=== PATIENT | female | born 1955 | race Caucasian/White ===

== ENCOUNTER 2017-10-20 11:49 | Observation (INO) | payer OTHER ==
[~2017-10-20] VITALS: Ht 167.6 cm; Wt 58.5 kg
[~2017-10-20 11:49] MED LIST: ATOR10TA66 PO; DEXL60CA PO; METO-387 PO; MONT10TA21 PO; OXYB10TA PO; ROPI0.25 PO; VIT D2 PO; [UNRECOGNIZED DRUG - OTHER] PO
--- NOTE | 2017-10-20 11:56 | ED Chest Pain ---
General Stated Complaint: CP/SOB Source: patient, EMS Exam Limitations: no limitations History of Present Illness Date Seen by Provider: Oct 20, 2017 Time Seen by Provider: 11:54 Initial Comments To ER per EMS from [facility] in [facility]. Patient presented there for chest pain shortness of breath. EMS was summoned due to these complaints. Upon their arrival, oxygen saturation was found be 86% on room air and she does not wear oxygen at home. She does smoke cigarettes. She developed a fever and cough yesterday. Fever maximum of 100.2. EMS gave 324 mg of aspirin in route to the hospital. Currently the chest pain and shortness of breath are gone. Patient reports a history of esophageal spasms and states that this pain felt similar. 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 NTG SL LOCOMOTIVE CRANE OPERATOR: No Allergies and Home Medications Allergies Coded Allergies: No Known Drug Allergies (Unverified , 06/17/16) Home Medications Atorvastatin Calcium 10 Mg Tablet, 10 MG PO HS, (Reported) Dexlansoprazole 60 Mg bp, 60 MG PO DAILY, (Reported) Metoprolol Succinate 25 Mg Tab.er.24h, 12.5 MG PO DAILY, (Reported) Montelukast Sodium 10 Mg Tablet, 10 MG PO DAILY, (Reported) Oxybutynin Chloride 10 Mg Tab.er.24, 10 MG PO DAILY, (Reported) Ropinirole HCl 0.25 Mg Tablet, 0.25 MG PO DAILY, (Reported) [Levocitrizine] , 5 MG PO DAILY, (Reported) [Vit D2] , 50,000 UNITS PO WEEK, (Reported) Review of Systems Constitutional: see HPI, fever EENTM: No Symptoms Reported Respiratory: See HPI, Cough, Shortness of Air Cardiovascular: See HPI, Chest Pain Gastrointestinal: No Symptoms Reported Genitourinary: No Symptoms Reported Musculoskeletal: no symptoms reported Skin: no symptoms reported Psychiatric/Neurological: No Symptoms Reported Past Pedapfb-Sblnmd-Xmgcpb Hx Patient Social History Recent Hopitalizations: No Seasonal Allergies Seasonal Allergies: No Surgeries Surgeries: Hysterectomy Cardiovascular Cardiac Disorders: Hypertension Reproductive System Hx Reproductive Disorders: No Physical Exam Vital Signs Vital Signs - First Documented Capillary Refill : General Appearance: No Apparent Distress, WD/WN HEENT: PERRL/EOMI, TMs Normal Neck: Full Range of Motion, Normal Inspection Respiratory: Normal Breath Sounds, No Accessory Muscle Use, No Respiratory Distress Cardiovascular: Regular Rate, Rhythm, Normal Peripheral Pulses Gastrointestinal: Normal Bowel Sounds, Non Tender, Soft Extremity: Normal Capillary Refill, Normal Inspection Neurologic/Psychiatric: Alert, Oriented x3, No Motor/Sensory Deficits Skin: Normal Color, Warm/Dry Focused Exam Evaluation Lactate Level Laboratory Tests 10/20/17 12:15: Lactic Acid Level 2.76*H 10/20/17 14:30: Lactic Acid Level 1.42 Lactic Acid Level Laboratory Tests Test 10/20/17 12:15 10/20/17 14:30 Lactic Acid Level 2.76 MMOL/L (0.50-2.00) *H 1.42 MMOL/L (0.50-2.00) Progress/Results/Core Measures Results/Orders Lab Results Laboratory Tests Test 10/20/17 12:15 10/20/17 14:27 10/20/17 14:30 Range/Units White Blood Count 8.8 4.3-11.0 10^3/uL Red Blood Count 4.29 L 4.35-5.85 10^6/uL Hemoglobin 13.3 11.5-16.0 G/DL Hematocrit 37 35-52 % Mean Corpuscular Volume 87 80-99 FL Mean Corpuscular Hemoglobin 31 25-34 PG Mean Corpuscular Hemoglobin Concent 36 32-36 G/DL Red Cell Distribution Width 13.7 10.0-14.5 % Platelet Count 168 130-400 10^3/uL Mean Platelet Volume 11.4 H 7.4-10.4 FL Neutrophils (%) (Auto) 81 H 42-75 % Lymphocytes (%) (Auto) 9 L 12-44 % Monocytes (%) (Auto) 10 0-12 % Eosinophils (%) (Auto) 0 0-10 % Basophils (%) (Auto) 0 0-10 % Neutrophils # (Auto) 7.1 1.8-7.8 X 10^3 Lymphocytes # (Auto) 0.8 L 1.0-4.0 X 10^3 Monocytes # (Auto) 0.9 0.0-1.0 X 10^3 Eosinophils # (Auto) 0.0 0.0-0.3 10^3/uL Basophils # (Auto) 0.0 0.0-0.1 10^3/uL Sodium Level 141 135-145 MMOL/L Potassium Level 3.5 L 3.6-5.0 MMOL/L Chloride Level 107 98-107 MMOL/L Carbon Dioxide Level 23 21-32 MMOL/L Anion Gap 11 5-14 MMOL/L Blood Urea Nitrogen 12 7-18 MG/DL Creatinine 0.79 0.60-1.30 MG/DL Estimat Glomerular Filtration Rate > 60 BUN/Creatinine Ratio 15 Glucose Level 109 H 70-105 MG/DL Lactic Acid Level 2.76 *H 1.42 0.50-2.00 MMOL/L Calcium Level 8.5 8.5-10.1 MG/DL Total Bilirubin 0.3 0.1-1.0 MG/DL Aspartate Amino Transf (AST/SGOT) 25 5-34 U/L Alanine Aminotransferase (ALT/SGPT) 35 0-55 U/L Alkaline Phosphatase 56 40-136 U/L Troponin I < 0.30 < 0.30 <0.30 NG/ML Total Protein 6.3 L 6.4-8.2 GM/DL Albumin 3.6 3.2-4.5 GM/DL Urine Color YELLOW Urine Clarity CLEAR Urine pH 5 5-9 Urine Specific [place] 1.015 L 1.016-1.022 Urine Protein 1+ H NEGATIVE Urine Glucose (UA) NEGATIVE NEGATIVE Urine Ketones NEGATIVE NEGATIVE Urine Nitrite NEGATIVE NEGATIVE Urine Bilirubin NEGATIVE NEGATIVE Urine Urobilinogen NORMAL NORMAL MG/DL Urine Leukocyte Esterase NEGATIVE NEGATIVE Urine RBC (Auto) 4+ H NEGATIVE Urine RBC 10-25 H /HPF Urine WBC NONE /HPF Urine Crystals NONE /LPF Urine Bacteria NEGATIVE /HPF Urine Casts NONE /LPF Urine Mucus NEGATIVE /LPF Urine Culture Indicated NO Micro Results Microbiology 10/20/17 Influenza Types A,B Antigen (BLANCO) - Final, Complete My Orders Orders - JULIO KAMARA APRN Ibuprofen Tablet (Motrin Tablet) (10/20/17 12:15) Cbc With Automated Diff (10/20/17 12:10) Comprehensive Metabolic Panel (10/20/17 12:10) Ua Culture If Indicated (10/20/17 12:10) Saline Lock/Iv-Start (10/20/17 12:10) Lactic Acid Analyzer (10/20/17 12:10) Blood Culture (10/20/17 12:10) Chest Pa/Lat (2 View) (10/20/17 12:26) Antacid Suspension (Mylanta Suspension (10/20/17 13:30) Lidocaine 2% Viscous 15 Ml (Xylocaine Vi (10/20/17 13:30) Troponin I (10/20/17 13:24) Influenza A And B Antigens (10/20/17 13:41) Ns Iv 1000 Ml (Sodium Chloride 0.9%) (10/20/17 14:15) Troponin I (10/20/17 14:31) Ct Angio Chest W (10/20/17 14:31) Iohexol Injection (Omnipaque 350 Mg/Ml 1 (10/20/17 14:45) Sodium Chloride Flush (Catheter Flush Sy (10/20/17 14:45) Ns (Ivpb) (Sodium Chloride 0.9%) (10/20/17 14:45) Pharmacy Communication (Pharmacy Communi (10/20/17 14:45) Medications Given in ED Current Medications Medications Dose Ordered Sig/Bronson Route Start Time Stop Time Status Last Admin Dose Admin Al Hydrox/Mg Hydrox/Simethicone 30 ml ONCE ONCE PO 10/20/17 13:30 10/20/17 13:31 DC 10/20/17 13:45 30 ML Ibuprofen 800 mg ONCE ONCE PO 10/20/17 12:15 10/20/17 12:16 DC 10/20/17 12:10 800 MG Iohexol 150 ml ONCE ONCE IV 10/20/17 14:45 10/20/17 14:47 DC 10/20/17 15:16 125 ML Lidocaine HCl 15 ml ONCE ONCE PO 10/20/17 13:30 10/20/17 13:31 DC 10/20/17 13:46 15 ML Sodium Chloride 10 ml NEEDED PRN IV 10/20/17 14:45 10/20/17 15:17 10 ML Sodium Chloride 250 ml ONCE ONCE IV 10/20/17 14:45 10/20/17 14:47 DC 10/20/17 15:16 80 ML Vital Signs/I&O Vital Sign - Last 12Hours 10/20/17 10/20/17 12:00 12:00 Temp 102.4 102.4 Pulse 81 81 Resp 22 22 B/P (MAP) 110/56 110/56 (74) Pulse Ox 96 96 O2 Delivery Nasal Cannula Nasal Cannula O2 Flow Rate 2.00 2.00 Diagnostic Imaging Diagonstic Imaging: Xray Plain Films/CT/US/NM/MRI: chest Comments NAME: [facility] REC#: [id number] PT STATUS: REG ER : 1955 PHYSICIAN: JULIO KAMARA APRN ADMIT DATE: 10/20/17/ER Draft Date of Exam:10/20/17 CHEST PA/LAT (2 VIEW) INDICATION: Cough. TIME OF EXAM: 1:15 p.m. COMPARISON: No prior studies are available for comparison. FINDINGS: There is a calcified nodule in the right lower lobe suggestive of a granuloma. No infiltrates are detected. No effusion or pneumothorax is seen. The heart size is normal. IMPRESSION: No acute cardiopulmonary process is detected. Dictated on workstation # [id number] Dict: 10/20/17 1300 Trans: 10/20/17 1302 [id number] Interpreted by: PILY HAINES MD Electronically signed by: Departure Communication (Admissions) Progress Notes 1424- patient did develop a brief episode of chest pain while in the emergency room. She was given a GI cocktail which helped and the pain is completely resolved after about 10 minutes. With the oxygen off her oxygen saturation has remained 91-93% on room air. Her blood pressure is 91/55 and she states that the low for her. We'll give a bag of fluids and observe her. She feels hungry she's not eaten all day so she's ordering off of the menu currently. 1536-blood pressure is still low at 87/55. Heart rate is in the low 60s. Oxygen saturation 90-92% on room air. She is afebrile at this time. Because of the hypotension will admit, steroids, Rocephin. I did discuss the case with Dr. Mckinney and she agrees. My main reason for admission as the hypotension, she likely has bronchitis and flulike illness as a cause for the fever. Impression Impression: Primary Impression: Bronchitis Additional Impression: Hypotension Disposition: ADMITTED INPATIENT Condition: Stable Admissions Decision to Admit Reason: Admit from ER (General) Decision to Admit/Date: Oct 20, 2017 Time/Decision to Admit Time: 15:37 Departure-Patient Inst. Referrals: DIANA GUERRERO (PCP/Family) Primary Care Physician JULIO KAMARA APRN Oct 20, 2017 11:56
[2017-10-20] MEDS ORDERED: IBUPROFEN 800 MG (MOTRIN) TAB PO ONE (12:15)
[2017-10-20 12:24] LABS: BASOPHILS % (AUTO) 0 % (0-10); EOSINOPHILS % (AUTO) 0 % (0-10); HEMATOCRIT 37 % (35-52); HEMOGLOBIN 13.3 G/DL (11.5-16.0); LYMPHOCYTES # (AUTO) 0.8 X 10^3 (1.0-4.0); LYMPHOCYTES % (AUTO) 9 % (12-44); MEAN CORPUSCULAR HEMOGLOBIN 31 PG (25-34); MEAN CORPUSCULAR HGB CONC 36 G/DL (32-36); MEAN CORPUSCULAR VOLUME 87 FL (80-99); MEAN PLATELET VOLUME 11.4 FL (7.4-10.4); MONOCYTES # (AUTO) 0.9 X 10^3 (0.0-1.0); MONOCYTES % (AUTO) 10 % (0-12); NEUTROPHILS # (AUTO) 7.1 X 10^3 (1.8-7.8); NEUTROPHILS % (AUTO) 81 % (42-75); PLATELET COUNT 168 10^3/uL (130-400); RED BLOOD COUNT 4.29 10^6/uL (4.35-5.85); RED CELL DISTRIBUTION WIDTH 13.7 % (10.0-14.5); WHITE BLOOD COUNT 8.8 10^3/uL (4.3-11.0)
[2017-10-20 12:34] LABS: ALANINE AMINOTRANSFERASE 35 U/L (0-55); ALBUMIN 3.6 GM/DL (3.2-4.5); ALKALINE PHOSPHATASE 56 U/L (40-136); BILIRUBIN,TOTAL 0.3 MG/DL (0.1-1.0); BUN/CREATININE RATIO 15; CALCIUM 8.5 MG/DL (8.5-10.1); CARBON DIOXIDE 23 MMOL/L (21-32); CHLORIDE 107 MMOL/L (98-107); CREATININE SERUM 0.79 MG/DL (0.60-1.30); GFR ESTIMATED > 60; GLUCOSE 109 MG/DL (70-105); POTASSIUM 3.5 MMOL/L (3.6-5.0); SODIUM 141 MMOL/L (135-145); TOTAL PROTEIN 6.3 GM/DL (6.4-8.2)
--- NOTE | 2017-10-20 13:02 | Diagnostic Imaging Report ---
INDICATION: Cough. TIME OF EXAM: 1:15 p.m. COMPARISON: No prior studies are available for comparison. FINDINGS: There is a calcified nodule in the right lower lobe suggestive of a granuloma. No infiltrates are detected. No effusion or pneumothorax is seen. The heart size is normal. IMPRESSION: No acute cardiopulmonary process is detected. Dictated by: Dictated on workstation # [id number]
[2017-10-20] MEDS ORDERED: ANTACID SUSP 30 ML UDC (MYLANTA) PO ONE (13:30)
[2017-10-20] MEDS ORDERED: LIDOCAINE 2% VISCOUS 15 ML UDC PO ONE (13:30)
[2017-10-20] MEDS ORDERED: NS IV 1000 ML 1,000 ML IV SCH (14:15)
[2017-10-20 14:37] LABS: BILIRUBIN,URINE NEGATIVE (NEGATIVE); CLARITY,URINE CLEAR; COLOR,URINE YELLOW; GLUCOSE, URINE (UA) NEGATIVE (NEGATIVE); KETONES,URINE NEGATIVE (NEGATIVE); LEUKOCYTE ESTERASE ,URINE NEGATIVE (NEGATIVE); NITRITE,URINE NEGATIVE (NEGATIVE); PH,URINE 5 (5-9); PROTEIN,URINE 1+ (NEGATIVE); UROBILINOGEN,URINE NORMAL (NORMAL)
[2017-10-20] MEDS ORDERED: CATHETER FLUSH 10 ML SYR IV PRN ×2 (14:45→17:30)
[2017-10-20] MEDS ORDERED: IOHEXOL 350 MG/ML 150 ML (OMNIPAQUE 350) VIAL IV ONE (14:45)
[2017-10-20] MEDS ORDERED: NS 250 ML (IVPB) BAG IV ONE (14:45)
[2017-10-20 14:52] LABS: BACTERIA,URINE NEGATIVE /HPF
--- NOTE | 2017-10-20 15:30 | Diagnostic Imaging Report ---
PROCEDURE: CT angiography of the chest with contrast. TECHNIQUE: Multiple contiguous axial images were obtained through the chest after uneventful bolus administration of intravenous contrast. Reconstructed CTA MIP acquisitions were also performed. INDICATION: Increasing chest pain. COMPARISON: No prior studies are available for comparison. FINDINGS: Evaluation of the pulmonary arterial system is without evidence of thromboembolism. No filling defects are identified within the central, lobar, or segmental pulmonary arterial branches. No axillary lymphadenopathy is seen. There are mildly prominent lymph nodes identified in the mediastinum and douglas bilaterally, etiology indeterminate. The thoracic aorta is normal caliber. No dissection is seen. No pericardial or pleural fluid is identified. Parenchymal evaluation shows significant emphysematous changes throughout both lungs. The upper abdomen is unremarkable. IMPRESSION: 1. No evidence of pulmonary embolism or thoracic aortic dissection. 2. Pulmonary emphysema. 3. Nonspecific mildly enlarged mediastinal and hilar lymph nodes, perhaps reactive but follow-up can be performed to confirm stability. Dictated by: Dictated on workstation # [id number]
[2017-10-20 16:45] VITALS: BP 108/68
[2017-10-20] MEDS ORDERED: predniSONE 20 MG TAB PO SCH (17:00)
[2017-10-20] MEDS ORDERED: RECEIVED CONTRAST (Hold Metformin) IV SCH (17:00)
[2017-10-20] MEDS: NS IV 1000 ML 1,000 ML IV SCH (18:11)
[2017-10-20] MEDS: predniSONE 20 MG TAB PO SCH (18:12)
[2017-10-20] MEDS: cefTRIAXone 1,000 MG/NS 50 ML IVPB IV SCH ×2 (18:13)
[2017-10-20] MEDS: RT-ALBUTEROL/IPRATROPIUM 3 ML (DUONEB) VIAL INH SCH (19:34)
[2017-10-20 20:00] VITALS: BP 106/53
[2017-10-20] MEDS ORDERED: guaiFENesin/DM (ROBITUSSIN DM) 10 ML UDC PO PRN (22:45)
[2017-10-20] MEDS ORDERED: HYDROcodone/APAP 5 MG/325 MG (LORTAB) TAB PO PRN (22:45)
[2017-10-20] MEDS ORDERED: IBUPROFEN TABLET 200 MG TAB PO PRN (23:15)
[2017-10-21 00:29] VITALS: BP 118/56
[2017-10-21 03:52] VITALS: BP 118/56
[2017-10-21] MEDS: NS IV 1000 ML 1,000 ML IV SCH (03:53)
[2017-10-21] MEDS: predniSONE 20 MG TAB PO SCH (06:38)
[2017-10-21] MEDS: RT-ALBUTEROL/IPRATROPIUM 3 ML (DUONEB) VIAL INH SCH (07:06)
[2017-10-21 07:17] LABS: BASOPHILS % (AUTO) 0 % (0-10); EOSINOPHILS % (AUTO) 0 % (0-10); HEMATOCRIT 35 % (35-52); HEMOGLOBIN 11.9 G/DL (11.5-16.0); LYMPHOCYTES # (AUTO) 0.8 X 10^3 (1.0-4.0); LYMPHOCYTES % (AUTO) 15 % (12-44); MEAN CORPUSCULAR HEMOGLOBIN 30 PG (25-34); MEAN CORPUSCULAR HGB CONC 34 G/DL (32-36); MEAN CORPUSCULAR VOLUME 89 FL (80-99); MEAN PLATELET VOLUME 12.1 FL (7.4-10.4); MONOCYTES # (AUTO) 0.3 X 10^3 (0.0-1.0); MONOCYTES % (AUTO) 5 % (0-12); NEUTROPHILS # (AUTO) 4.5 X 10^3 (1.8-7.8); NEUTROPHILS % (AUTO) 80 % (42-75); PLATELET COUNT 139 10^3/uL (130-400); RED BLOOD COUNT 3.92 10^6/uL (4.35-5.85); WHITE BLOOD COUNT 5.7 10^3/uL (4.3-11.0)
[2017-10-21 07:19] LABS: ALANINE AMINOTRANSFERASE 46 U/L (0-55); ALBUMIN 3.4 GM/DL (3.2-4.5); ALKALINE PHOSPHATASE 61 U/L (40-136); BILIRUBIN,TOTAL 0.2 MG/DL (0.1-1.0); BUN/CREATININE RATIO 14; CALCIUM 8.2 MG/DL (8.5-10.1); CARBON DIOXIDE 23 MMOL/L (21-32); CHLORIDE 111 MMOL/L (98-107); CREATININE SERUM 0.76 MG/DL (0.60-1.30); GFR ESTIMATED > 60; GLUCOSE 143 MG/DL (70-105); POTASSIUM 4.2 MMOL/L (3.6-5.0); SODIUM 141 MMOL/L (135-145); TOTAL PROTEIN 5.9 GM/DL (6.4-8.2)
[2017-10-21 08:00] VITALS: BP 126/73
[2017-10-21] MEDS: cefTRIAXone 1,000 MG/NS 50 ML IVPB IV SCH ×2 (08:21)
[2017-10-21] MEDS ORDERED: HYDR12.5 PO (09:43)
[2017-10-21] MEDS ORDERED: LEVO5TAB28 PO (09:43)
[2017-10-21] MEDS ORDERED: METO-370 PO (09:43)
[2017-10-21] MEDS ORDERED: ATOR20TA66 PO (09:43)
[2017-10-21] MEDS ORDERED: CHOL10007 PO (09:43)
[2017-10-21] MEDS ORDERED: ALBU90AE IH (09:59)
[2017-10-21] MEDS ORDERED: FLUT16SP22 NS (09:59)
[2017-10-21] MEDS ORDERED: SUCR1TAB36 PO ×2 (09:59→10:03)
[2017-10-21] MEDS ORDERED: IPR14IN IH (09:59)
[2017-10-21] MEDS ORDERED: CYCL10TA9 PO (10:03)
[2017-10-21] MEDS ORDERED: AZEL6DRO6 OU (10:03)
[2017-10-21] MEDS ORDERED: RT-ALBUINH IH (10:05)
--- NOTE | 2017-10-21 10:34 | Short Stay Summary-Hospitalist ---
HPI History of Present Illness: HPI/Chief Complaint This is a 61-year-old white female who had been to see her primary care provider and was found to have a low oxygen saturation and low blood pressure. She had an episode of chest discomfort which she felt was secondary to her esophageal spasm. Troponin has been negative overnight. The patient had a CTA that showed emphysema and some enlarged mediastinal nodes. This morning she is feeling much better, her oxygen saturation on room air is 94 percent and her blood pressure is normal. She has had a recent cough and actually has some discomfort of her abdomen muscles because of the cough. Other than that she's feeling much better after having been placed on the prednisone and is ready to go home. She has a long history of smoking Source: patient Exam Limitations: no limitations Date Seen 10/21/17 Time Seen by Provider: 10:15 Attending Physician Denae Liao Referring Physician Date of Admission Oct 20, 2017 at 3:44 pm Home Medications & Allergies Home Medications Reviewed patient Home Medication Reconciliation Form Allergies Allergies Coded Allergies No Known Drug Allergies (Oonmhbjpuo42/13/16) Past Rbnplbh-Ylisqm-Tisgdd Hx Patient Social History Marrital Status: Employed/Student: retired Alcohol Use: Denies Use Recreational Drug Use: No Smoking Status: Current Everyday Smoker Physical Abuse Screen: No Sexual Abuse: No Recent Foreign Travel: No Contact w/other who traveled: No Recent Hopitalizations: No Recent Infectious Disease Expo: No Immunizations Up To Date Date of Influenza Vaccine: Jun 22, 2017 Seasonal Allergies Seasonal Allergies: No Surgeries Yes Hysterectomy Respiratory Yes Emphysema Currently Using CPAP: No Currently Using BIPAP: No Cardiovascular Yes Hypertension, Irregular Heartbeat Neurological No Reproductive System Hx Reproductive Disorders: No Genitourinary Yes (bladder "trouble" but can't remember what it was called.) Gastrointestinal No Musculoskeletal No Endocrine History of Endocrine Disorders: No Cancer No Psychosocial History of Psychiatric Problem: No Family Medical History Significant Family History: No Pertinent Family Hx Review of Systems Constitutional: see HPI EENTM: no symptoms reported Respiratory: cough Cardiovascular: chest pain (Secondary to esophageal spasm) Gastrointestinal: no symptoms reported Genitourinary: incontinence Musculoskeletal: no symptoms reported Skin: no symptoms reported Psychiatric/Neurological: Depressed (Having recently lost her son and her ) Physical Exam Physical Exam Vital Signs Vital Signs - First Documented 10/20/17 17:06 FiO2 21 Capillary Refill : Less Than 3 Seconds General Appearance: No Apparent Distress HEENT: Normal ENT Inspection Neck: Normal Inspection, Supple Respiratory: Lungs Clear, Normal Breath Sounds, No Accessory Muscle Use, No Respiratory Distress Cardiovascular: Regular Rate, Rhythm, No Gallop, No Murmur Gastrointestinal: No Organomegaly, Non Tender, Soft Back: Normal Inspection Extremity: Normal Capillary Refill, Normal Inspection, No Calf Tenderness Neurologic/Psychiatric: Alert, Oriented x3, No Motor/Sensory Deficits, Normal Mood/Affect Results Results/Procedures Lab Laboratory Tests 10/20/17 12:15 10/21/17 05:27 Radiology 1. No evidence of pulmonary embolism or thoracic aortic dissection. 2. Pulmonary emphysema. 3. Nonspecific mildly enlarged mediastinal and hilar lymph nodes, perhaps reactive but follow-up can be performed to confirm stability. Short Stay Diagnosis Discharge Diagnosis-Short Stay Admission Diagnosis 1. Bronchitis with initial hypoxia that resolved 2. Hypotension transient 3. Emphysema 4. Hyperglycemia secondary to steroids 5. Enlarged mediastinal nodes of uncertain etiology 6. Chest pain secondary to esophageal spasm Patient is improved and is anxious to go home. She'll be discharged on Zithromax and prednisone Final Discharge Diagnosis 1. Bronchitis with initial hypoxia that resolved 2. Hypotension transient 3. Emphysema 4. Hyperglycemia secondary to steroids 5. Enlarged mediastinal nodes of uncertain etiology 6. Chest pain secondary to esophageal spasm 7. Tobaccoism Conclusion Plan Discharge home on Zithromax and prednisone. Recommended follow-up of the enlarged mediastinal nodes with her primary care provider. Tobaccoism- encourage curtailment Copy Copies To 1: Denise Robles Clinical Quality Measures AMI/AHF: ASA po Prior to arrival: Yes DVT/VTE Risk/Contraindication: Risk Factor Score Per Nursin RFS Level Per Nursing on Admit: 2=Moderate Smoking Cessation Counseling: Counseling-Symptomatic: 3-10 Minutes Discussed Options Including: Nicotine Patch DESTINY MCNEAL MD Oct 21, 2017 10:33
[2017-10-21] MEDS ORDERED: AZIT250T PO (10:43)
[2017-10-21] MEDS ORDERED: PRD20T PO (10:43)
[2017-10-21 11:40] VITALS: BP 126/73
--- OUTSIDE RECORDS SUMMARY | 2017-10-21 15:07 | XMS REPORT | Continuity of Care Document ---
Author Author [facility] Organization [facility] Address Unknown Phone Unavailable Allergies Active Description Code Type Severity Reaction Onset Reported/Identified Relationship to Patient Clinical Status Yes No Known Drug Allergies [id number] Drug Allergy Unknown N/A 06/17/2016 Medications There is no data. 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 Ot 599.70 HEMATURIA, UNSPECIFIED 06/17/2016 KATHERINE KIM MD Ot F17.210 NICOTINE DEPENDENCE, CIGARETTES, UNCOMPL 06/17/2016 KATHERINE KIM MD Ot I10 ESSENTIAL (PRIMARY) HYPERTENSION 06/17/2016 KATHERINE KIM MD Ot R00.1 BRADYCARDIA, UNSPECIFIED 06/17/2016 KATHERINE KIM MD Ot R42 DIZZINESS AND GIDDINESS 06/17/2016 KATHERINE KIM MD Ot Z79.899 OTHER FIELD HANDYMAN (CURRENT) DRUG THERAPY 06/18/2016 KATHERINE KIM MD Ot F17.210 NICOTINE DEPENDENCE, CIGARETTES, UNCOMPL 06/18/2016 KATHERINE KIM MD Ot I10 ESSENTIAL (PRIMARY) HYPERTENSION 06/18/2016 KATHERINE KIM MD Ot R00.1 BRADYCARDIA, UNSPECIFIED 06/18/2016 KATHERINE KIM MD Ot R42 DIZZINESS AND GIDDINESS 06/18/2016 KATHERINE KIM MD Ot Z79.899 OTHER FIELD HANDYMAN (CURRENT) DRUG THERAPY 06/23/2016 KATHERINE KIM MD Ot F17.210 NICOTINE DEPENDENCE, CIGARETTES, UNCOMPL 06/23/2016 KATHERINE KIM MD Ot I10 ESSENTIAL (PRIMARY) HYPERTENSION 06/23/2016 KATHERINE KIM MD Ot R00.1 BRADYCARDIA, UNSPECIFIED 06/23/2016 JULIO RODAS, KATHERINE Denis Ot R42 DIZZINESS AND GIDDINESS 06/23/2016 JULIO RODAS, KATHERINE Denis Ot Z79.899 OTHER RESIDENTIAL (CURRENT) DRUG THERAPY Procedures There is no data. Results Test Result Range Comprehensive metabolic panel - 06/17/16 10:10 Serum or plasma sodium measurement (moles/volume) 144 mmol/L 135-145 Serum or plasma potassium measurement (moles/volume) 4.4 mmol/L 3.6-5.0 Serum or plasma chloride measurement (moles/volume) 111 mmol/L 98-107 Carbon dioxide 24 mmol/L 21-32 Serum or plasma anion gap determination (moles/volume) 9 mmol/L 5-14 Serum or plasma urea nitrogen measurement (mass/volume) 14 mg/dL 7-18 Serum or plasma creatinine measurement (mass/volume) 0.78 mg/dL 0.60-1.30 Serum or plasma urea nitrogen/creatinine mass ratio 18 NRG Serum or plasma creatinine measurement with calculation of estimated glomerular filtration rate > NRG Serum or plasma glucose measurement (mass/volume) 88 mg/dL 70-105 Serum or plasma calcium measurement (mass/volume) 9.9 mg/dL 8.5-10.1 Serum or plasma total bilirubin measurement (mass/volume) 0.6 mg/dL 0.1-1.0 Serum or plasma alkaline phosphatase measurement (enzymatic activity/volume) 52 U/L 40-136 Serum or plasma aspartate aminotransferase measurement (enzymatic activity/ volume) 13 U/L 5-34 Serum or plasma alanine aminotransferase measurement (enzymatic activity/volume ) 15 U/L 0-55 Serum or plasma protein measurement (mass/volume) 6.9 g/dL 6.4-8.2 Serum or plasma albumin measurement (mass/volume) 4.2 g/dL 3.2-4.5 Complete urinalysis with reflex to culture - 06/17/16 10:25 Urine color determination YELLOW NRG Urine clarity determination CLEAR NRG Urine pH measurement by test strip 7 5-9 Specific gravity of urine by test strip 1.005 1.016- 1.022 Urine protein assay by test strip, semi-quantitative NEGATIVE NEGATIVE Urine glucose detection by automated test strip NEGATIVE NEGATIVE Erythrocytes detection in urine sediment by light microscopy 2+ NEGATIVE Urine ketones detection by automated test strip NEGATIVE NEGATIVE Urine nitrite detection by test strip NEGATIVE NEGATIVE Urine total bilirubin detection by test strip NEGATIVE NEGATIVE Urine urobilinogen measurement by automated test strip (mass/volume) NORMAL NORMAL Urine leukocyte esterase detection by dipstick NEGATIVE NEGATIVE Automated urine sediment erythrocyte count by microscopy (number/high power field) [HPF] NRG Automated urine sediment leukocyte count by microscopy (number/high power field ) NONE NRG Bacteria detection in urine sediment by light microscopy NEGATIVE NRG Squamous epithelial cells detection in urine sediment by light microscopy 2-5 NRG Crystals detection in urine sediment by light microscopy NONE NRG Casts detection in urine sediment by light microscopy NONE NRG Mucus detection in urine sediment by light microscopy NEGATIVE NRG Complete urinalysis with reflex to culture NO NRG Encounters ACCT No. Visit Date/Time Discharge Status Pt. Type Provider Facility Loc./Unit Complaint [id number] 06/17/2016 09:28:00 06/17/2016 12:32:00 DIS Emergency JULIO RODAS, KATHERINE Denis [facility] ER DIZZINESS/ELEV BP [id number] 03/25/2015 09:43:00 03/25/2015 23:59:59 CLS Outpatient DARY TAYLOR [facility] RAD HEMATURIA [id number] 11/02/2012 11:35:00 Document Registration [id number] 10/27/2012 11:28:00 Document Registration
== END 2017-10-21 10:38 | disposition home or self-care (01) ==
LOC: EDUNIT# 11:49 → ER 11:50 → UNDOADMOB 15:44 → 4TH 15:44 → UNDODISOB 10-21 11:40
PROVIDERS: ADMIT Internal Medicine; ATTEND Internal Medicine
DX: J40 Bronchitis, not specified as acute or chronic (principal); R09.02 Hypoxemia; R03.1 Nonspecific low blood-pressure reading; J43.9 Emphysema, unspecified; R73.9 Hyperglycemia, unspecified; R59.0 Localized enlarged lymph nodes; K22.4 Dyskinesia of esophagus; F17.210 Nicotine dependence, cigarettes, uncomplicated; T38.0X5A Adverse effect of glucocorticoids and synthetic analogues, initial encounter
CPT/HCPCS: 36415; 71046; 71275; 80053; 81000; 83605; 84484; 85025; 87040; 87804; 94640; 94664; 94760; 96360; G0378

== ENCOUNTER 2019-08-14 10:58 | Outpatient (RCR) | payer MEDICARE, OTHER ==
[~2019-08-14 10:58] MED LIST changes: +ALBU90AE IH; +ATOR20TA66 PO; +AZEL6DRO OU; +AZIT250T PO; +CHOL10007 PO; +CYCL10TA9 PO; +FLUT16SP22 NS; +HYDR12.5 PO; +IPR14IN IH; +LEVO5TAB28 PO; -METO-387 PO; +METO50TA7 PO; +MTP25TSR PO; -OXYB10TA PO; +OXYB10TA29 PO; +PRD20T PO; -ROPI0.25 PO; +ROPI0.253 PO; +RT-ALBUINH IH; +SUCR1TAB36 PO
== END 2019-11-12 | disposition home or self-care (01) ==
LOC: CARD 10:58
PROVIDERS: ATTEND Physician Assistant
DX: K21.9 Gastro-esophageal reflux disease without esophagitis (principal); I10 Essential (primary) hypertension; E78.2 Mixed hyperlipidemia; R09.89 Other specified symptoms and signs involving the circulatory and respiratory systems; R00.2 Palpitations
CPT/HCPCS: 93225; 93226

== ENCOUNTER → 2020-07-02 | Outpatient (CLI) | payer MEDICARE, OTHER | LOC: CARD 13:01 | PROVIDERS: ATTEND Internal Medicine Cardiovascular Disease | DX: I10 Essential (primary) hypertension (principal); E78.2 Mixed hyperlipidemia; R00.2 Palpitations; R07.9 Chest pain, unspecified; R06.09 Other forms of dyspnea | CPT/HCPCS: 93306; 93351 ==

== ENCOUNTER 2022-10-31 22:45 | Emergency (ER) | payer MEDICARE, OTHER ==
[~2022-10-31] VITALS: Ht 149.8 cm; Wt 66.2 kg
[~2022-10-31 22:45] MED LIST changes: +CYCL10TA25 PO; -CYCL10TA9 PO
[2022-10-31 23:08] LABS: BASOPHILS # (AUTO) 0.1 10^3/uL (0.0-0.1); BASOPHILS % (AUTO) 1 % (0-10); EOSINOPHILS # (AUTO) 0.2 10^3/uL (0.0-0.3); EOSINOPHILS % (AUTO) 3 % (0-10); HEMATOCRIT 38 % (35-52); LYMPHOCYTES # (AUTO) 3.4 10^3/uL (1.0-4.0); LYMPHOCYTES % (AUTO) 44 % (12-44); MEAN CORPUSCULAR HEMOGLOBIN 30 pg (25-34); MEAN CORPUSCULAR HGB CONC 35 g/dL (32-36); MEAN CORPUSCULAR VOLUME 88 fL (80-99); MEAN PLATELET VOLUME 10.4 fL (9.0-12.2); MONOCYTES # (AUTO) 0.7 10^3/uL (0.0-1.0); MONOCYTES % (AUTO) 9 % (0-12); NEUTROPHILS # (AUTO) 3.3 10^3/uL (1.8-7.8); NEUTROPHILS % (AUTO) 43 % (42-75); PLATELET COUNT 226 10^3/uL (130-400); WHITE BLOOD COUNT 7.6 10^3/uL (4.3-11.0)
[2022-10-31 23:20] LABS: ALBUMIN 4.3 GM/DL (3.2-4.5)
[2022-10-31 23:21] LABS: POTASSIUM 3.9 MMOL/L (3.6-5.0)
[2022-10-31 23:22] LABS: CALCIUM 9.9 MG/DL (8.5-10.1)
[2022-10-31 23:23] LABS: TOTAL PROTEIN 7.1 GM/DL (6.4-8.2)
--- NOTE | 2022-10-31 23:24 | ED Chest Pain ---
General Chief Complaint: Chest Pain Stated Complaint: CHEST PAIN Nursing Triage Note: pt amb to rm 6 with complaints of chest pain that started an hour ago. pt states that it is acid refulx due to her not taking her meds for a couple days. pt took antiacid med this afternoon. Source: patient Exam Limitations: no limitations History of Present Illness Date Seen by Provider: Oct 31, 2022 Time Seen by Provider: 22:57 Initial Comments This 67-year-old woman presents to the emergency room with chest pain that she identifies as heartburn. Pain today was more severe than what she typically attributes to her heartburn. She reports forgetting to take Dexilant the past 2 days. She did take a dose tonight after she had more severe pain. Pain started around 1400 and radiates up to her throat. She is noted to be rather hypertensive but she reports taking her lisinopril this morning and this evening. She has a pressure in her upper abdomen as a sensation to belch. She reports her pain was 8/10 at its worst and is only 2/10 at present. She denies any associated symptoms such as vomiting, shortness of breath, diaphoresis, etc. She had a prior cardiac work-up in 2019 including stress test, Holter monitor and echocardiogram. Echocardiogram demonstrated grade 1 diastolic dysfunction. Holter monitor demonstrated sinus rhythm with occasional PACs. An interpretation report of the stress test does not in the medical record but patient reports stress test was negative. 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 Her primary care provider is Denise Taylor. Allergies and Home Medications Allergies Coded Allergies: No Known Drug Allergies (Unverified , 06/17/16) Patient Home Medication List Home Medication List Reviewed: Yes Albuterol Sulfate (Proventil Hfa) 6.7 Gm Hfa.aer.ad, 2 PUFF IH Q6H PRN for SHORTNESS OF BREATH, (Reported) Entered as Reported by: LESLIE MUSE on 10/21/17 1005 Atorvastatin Calcium (Atorvastatin Calcium) 20 Mg Tablet, 20 MG PO HS, (Reported) Entered as Reported by: LESLIE MUSE on 10/21/17 0943 Azelastine HCl (Azelastine HCl) 6 Ml Drops, 1 DROP OU DAILY, (Reported) Entered as Reported by: LESLIE MUSE on 10/21/17 1003 Azithromycin (Zithromax) 250 Mg Tablet, 250 MG PO DAILY Prescribed by: DESTINY MCNEAL on 10/21/17 1043 Cholecalciferol (Vitamin D3) (Vitamin D3) 1,000 Unit Capsule, 1,000 UNIT PO BID, (Reported) Entered as Reported by: LESLIE MUSE on 10/21/17 0943 Cyclobenzaprine HCl (Cyclobenzaprine HCl) 10 Mg Tablet, 10 MG PO BID PRN for MUSCLE SPASMS, (Reported) Entered as Reported by: LESLIE MUSE on 10/21/17 1003 Dexlansoprazole (Dexilant) 60 Mg , 60 MG PO DAILY, (Reported) Entered as Reported by: KHRIS ALVARADO on 06/17/16 100 Fluticasone Propionate (Fluticasone Propionate) 16 Gm [place].susp, 2 SPRAYS NS DA YAZAN, (Reported) Entered as Reported by: LESLIE MUSE on 10/21/17 0959 Hydrochlorothiazide (Hydrochlorothiazide) 12.5 Mg Capsule, 12.5 MG PO DAILY, (Reported) Entered as Reported by: LESLIE MUSE on 10/21/17 0943 Ipratropium Oak (Atrovent Hfa) 12.9 Gm Aers, 2 PUFF IH Q6H PRN for SHORTNESS OF BREATH, (Reported) Entered as Reported by: LESLIE MUSE on 10/21/17 0959 Levocetirizine Dihydrochloride (Xyzal) 5 Mg Tablet, 5 MG PO HS, (Reported) Entered as Reported by: LESLIE MUSE on 10/21/17 0943 Metoprolol Succinate (Metoprolol Succinate) 50 Mg Tab.er.24h, 50 MG PO DAILY, (Reported) Entered as Reported by: LESLIE MUSE on 10/21/17 0943 Montelukast Sodium (Singulair) 10 Mg Tablet, 10 MG PO HS, (Reported) Entered as Reported by: KHRIS ALVARADO on 06/17/16 100 Oxybutynin Chloride (Oxybutynin Chloride ER) 10 Mg Tab.er.24, 10 MG PO HS, (Reported) Entered as Reported by: KHRIS ALVARADO on 06/17/16 100 Prednisone (Prednisone) 20 Mg Tab, 20 MG PO DAILY@0700 Prescribed by: DESTINY MCNEAL on 10/21/17 1043 Ropinirole HCl (Ropinirole HCl) 0.25 Mg Tablet, 0.25 MG PO HS, (Reported) Entered as Reported by: KHRIS ALVARADO on 06/17/16 1008 Sucralfate (Carafate) 1 Gm Tablet, 1 GM PO BID, (Reported) Entered as Reported by: LESLIE MUSE on 10/21/17 0959 Sucralfate (Carafate) 1 Gm Tablet, 1 GM PO BID PRN for STOMACH UPSET, (Reported) Entered as Reported by: LESLIE MUSE on 10/21/17 1003 Review of Systems Review of Systems Constitutional: no symptoms reported EENTM: No Symptoms Reported Respiratory: No Symptoms Reported Cardiovascular: See HPI Gastrointestinal: See HPI Genitourinary: No Symptoms Reported Musculoskeletal: no symptoms reported Skin: no symptoms reported Psychiatric/Neurological: No Symptoms Reported Endocrine: No Symptoms Reported Past Ybxkmbh-Swdlmj-Lxcaas Hx Patient Social History Tobacco Use?: No Substance use?: No Alcohol Use?: Yes Alcohol Frequency: Once in a while Immunizations Up To Date Influenza Vaccine Up-to-Date: Yes; Up-to-Date Seasonal Allergies Seasonal Allergies: No Past Medical History Surgeries: Yes Hysterectomy Respiratory: Yes Emphysema Currently Using CPAP: No Currently Using BIPAP: No Cardiac: Yes Hypertension, Irregular Heartbeat, Palpitations Neurological: No : No Reproductive Disorders: No Genitourinary: Yes (bladder "trouble" but can't remember what it was called.) Gastrointestinal: Yes Gastroesophageal Reflux Musculoskeletal: No Endocrine: No Cancer: No Psychosocial: No Family Medical History No Pertinent Family Hx Physical Exam Vital Signs Vital Signs - First Documented 10/31/22 11/01/22 22:46 03:02 Temp 36.6 Pulse 56 Resp 18 B/P (MAP) 162/135 (144) Pulse Ox 96 O2 Delivery Room Air Capillary Refill : Height, Weight, BMI Height: 5'6.00" Weight: 129lbs. 0.0oz. 58.784223yt; 29.00 BMI Method:Stated General Appearance: No Apparent Distress, WD/WN HEENT: PERRL/EOMI, Normal ENT Inspection Neck: Normal Inspection; No JVD Respiratory: Chest Non Tender, Lungs Clear, Normal Breath Sounds, No Accessory Muscle Use, No Respiratory Distress Cardiovascular: Regular Rate, Rhythm, No Edema, No Murmur Gastrointestinal: Non Tender, Soft; No Distended Extremity: Normal Inspection, Non Tender, No Calf Tenderness, No Pedal Edema Neurologic/Psychiatric: Alert, Oriented x3, No Motor/Sensory Deficits, Normal Mood/Affect Skin: Normal Color, Warm/Dry Progress/Results/Core Measures Results/Orders Lab Results Laboratory Tests Test 10/31/22 23:00 11/01/22 01:00 Range/Units White Blood Count 7.6 4.3-11.0 10^3/uL Red Blood Count 4.30 3.80-5.11 10^6/uL Hemoglobin 13.0 11.5-16.0 g/dL Hematocrit 38 35-52 % Mean Corpuscular Volume 88 80-99 fL Mean Corpuscular Hemoglobin 30 25-34 pg Mean Corpuscular Hemoglobin Concent 35 32-36 g/dL Red Cell Distribution Width 13.0 10.0-14.5 % Platelet Count 226 130-400 10^3/uL Mean Platelet Volume 10.4 9.0-12.2 fL Immature Granulocyte % (Auto) 0 % Neutrophils (%) (Auto) 43 42-75 % Lymphocytes (%) (Auto) 44 12-44 % Monocytes (%) (Auto) 9 0-12 % Eosinophils (%) (Auto) 3 0-10 % Basophils (%) (Auto) 1 0-10 % Neutrophils # (Auto) 3.3 1.8-7.8 10^3/uL Lymphocytes # (Auto) 3.4 1.0-4.0 10^3/uL Monocytes # (Auto) 0.7 0.0-1.0 10^3/uL Eosinophils # (Auto) 0.2 0.0-0.3 10^3/uL Basophils # (Auto) 0.1 0.0-0.1 10^3/uL Immature Granulocyte # (Auto) 0.0 0.0-0.1 10^3/uL Prothrombin Time 13.4 12.2-14.7 SEC INR Comment 1.0 0.8-1.4 Activated Partial Thromboplast Time 32 24-35 SEC Sodium Level 142 135-145 MMOL/L Potassium Level 3.9 3.6-5.0 MMOL/L Chloride Level 109 H 98-107 MMOL/L Carbon Dioxide Level 22 21-32 MMOL/L Anion Gap 11 5-14 MMOL/L Blood Urea Nitrogen 22 H 7-18 MG/DL Creatinine 0.88 0.60-1.30 MG/DL Estimat Glomerular Filtration Rate 71 BUN/Creatinine Ratio 25 Glucose Level 99 70-105 MG/DL Calcium Level 9.9 8.5-10.1 MG/DL Corrected Calcium 9.7 8.5-10.1 MG/DL Magnesium Level 1.7 1.6-2.4 MG/DL Total Bilirubin 0.4 0.1-1.0 MG/DL Aspartate Amino Transf (AST/SGOT) 18 5-34 U/L Alanine Aminotransferase (ALT/SGPT) 24 0-55 U/L Alkaline Phosphatase 83 40-136 U/L Myoglobin 55.9 10.0-92.0 NG/ML Troponin I < 0.028 < 0.028 <0.028 NG/ML Total Protein 7.1 6.4-8.2 GM/DL Albumin 4.3 3.2-4.5 GM/DL My Orders Orders - RON BACON MD Ekg Tracing (10/31/22 22:48) Cbc With Automated Diff (10/31/22 22:57) Magnesium (10/31/22 22:57) Chest 1 View, Ap/Pa Only (10/31/22 22:57) Comprehensive Metabolic Panel (10/31/22 22:57) Myoglobin Serum (10/31/22 22:57) Protime With Inr (10/31/22 22:57) Partial Thromboplastin Time (10/31/22 22:57) O2 (10/31/22 22:57) Monitor-Rhythm Ecg Trace Only (10/31/22 22:57) Ed Iv/Invasive Line Start (10/31/22 22:57) Troponin I Renetta (10/31/22 22:57) Lisinopril Tablet (Zestril Tablet) (10/31/22 23:30) Lidocaine 2% Viscous 15 Ml (Xylocaine Vi (10/31/22 23:30) Antacid Suspension (Mylanta Suspension (10/31/22 23:30) Ondansetron Injection (Zofran Injectio (10/31/22 23:30) Troponin I Renetta (11/01/22 01:00) Ekg Tracing (10/31/22 23:49) Chest Pa/Lat (2 View) (11/01/22 00:01) Nitroglycerin 0.4 Mg Btl 25's (Nitrostat (11/01/22 00:15) Aspirin Chewable Tablet (Baby Aspirin Ch (11/01/22 00:15) Medications Given in ED Current Medications Medications Dose Ordered Sig/Bronson Route Start Time Stop Time Status Last Admin Dose Admin Al Hydrox/Mg Hydrox/Simethicone 30 ml ONCE ONCE PO 10/31/22 23:30 10/31/22 23:31 DC 10/31/22 23:38 30 ML Aspirin 324 mg ONCE ONCE PO 11/01/22 00:15 11/01/22 00:16 DC 11/01/22 00:24 324 MG Lidocaine HCl 15 ml ONCE ONCE PO 10/31/22 23:30 10/31/22 23:31 DC 10/31/22 23:38 15 ML Nitroglycerin 0.4 mg UD PRN SL 11/01/22 00:15 11/01/22 03:05 DC 11/01/22 00:24 0.4 MG Ondansetron HCl 4 mg ONCE ONCE IVP 10/31/22 23:30 10/31/22 23:31 DC 10/31/22 23:39 4 MG Vital Signs/I&O 10/31/22 11/01/22 22:46 03:02 Temp 36.6 Pulse 56 64 Resp 18 B/P (MAP) 162/135 (144) 143/70 Pulse Ox 96 95 O2 Delivery Room Air Room Air Blood Pressure Mean: 144 Progress Progress Note : Progress Note Initial work-up including CBC, CMP, magnesium, troponin, EKG, and chest x-ray were unremarkable. All labs and imaging were reviewed by me. Chest x-ray int erpretation was difficult due to breast shadowing in the lower lung flaherty when compared with prior. A 2 view chest x-ray was then obtained for better interpretation. No acute abnormalities were appreciated by my interpretation. Patient had serial EKGs and serial troponin which were negative and were all reviewed by me. Patient received a GI cocktail and Zofran. This did not r esolve her pain. This was then followed by aspirin and nitroglycerin. Pain did eventually completely resolved. Since patient was pain-free and serial troponin was negative, she was allowed discharge to follow-up as an outpatient. The importance of follow-up with Dr. Ibarra was stressed. Discharge instructions were reviewed. Blood pressure improved to an acceptable level. EKG #1: EKG Time: 22:48 Rate: 57 Rhythm: Normal Sinus Intervals: Normal ECG Impression: Normal Comment Normal sinus rhythm with no diagnostic ST elevation or depression. The minimal ST change noted by automated read did not meet diagnostic criteria. No abnormal intervals or axis deviation. EKG #2: EKG Time: 22:56 Rate: 61 Rhythm: Normal Sinus Intervals: Normal ECG Comparisson: Unchanged ECG Impression: Normal Comment Normal sinus rhythm with no diagnostic ST elevation or depression. The minimal ST change noted by automated read did not meet diagnostic criteria. No abnormal intervals or axis deviation. No dynamic changes from prior. Diagnostic Imaging Diagonstic Imaging: Xray Plain Films/CT/US/NM/MRI: chest (Portable AP view and 2 view department fi lms) Comments Portable chest x-ray viewed by me. Report not yet available. There was opacity in the lower lung flaherty. Was unclear if this was due to pulmonary effusion versus breast shadowing. 2 view chest x-ray was ordered to follow. No acute abnormalities were appreciated on the 2 view films when compared with prior. Departure Impression Primary Impression: Chest pain Qualified Codes: R07.9 - Chest pain, unspecified Additional Impressions: Gastroesophageal reflux disease Qualified Codes: K21.9 - Gastro-esophageal reflux disease without esophagitis Episode of hypertension Disposition: 01 HOME, SELF-CARE Condition: Improved Departure-Patient Inst. Decision time for Depature: 02:51 Referrals: [facility] (PCP) Primary Care Physician DARY TAYLOR (Family) Primary Care Physician Patient Instructions: Chest Pain, Acid Reflux and Gastroesophageal Reflux Disease in Adults Add. Discharge Instructions: Continue taking Dexilant daily. Take enteric-coated aspirin 81 mg daily until otherwise instructed. Follow-up with Dr. Ibarra as soon as possible. Please call his office today to schedule an appointment. Avoid the following that may worsen acid reflux: Eating large meals, eating close to bedtime, caffeine, carbonation, citrus fruits and juices, tomato products, chocolate, mints, spicy foods, fatty/greasy foods, NSAID medications such as ibuprofen or naproxen, alcohol, tobacco, or anything else you know irritates your stomach. Follow-up with your primary care provider soon as possible. Discussed referral to a surgeon or tower dragline operator for endoscopy (scoping of your stomach). Bring copy of these discharge instructions with you to your follow-up appointments. Return to the ER if you are having recurrent episodes of chest pain or other worsening symptoms. All discharge instructions reviewed with patient and/or family. Voiced understanding. Copy Copies To 1: MARTINEZ IBARRA MD, JOSHUA T MD Oct 31, 2022 23:24
[2022-10-31 23:25] LABS: BILIRUBIN,TOTAL 0.4 MG/DL (0.1-1.0)
[2022-10-31 23:26] LABS: CREATININE SERUM 0.88 MG/DL (0.60-1.30)
[2022-10-31 23:29] LABS: MAGNESIUM 1.7 MG/DL (1.6-2.4); PROTHROMBIN TIME PATIENT 13.4 SEC (12.2-14.7)
[2022-10-31] MEDS ORDERED: LIDOCAINE 2% VISCOUS 15 ML UDC PO ONE (23:30)
[2022-10-31] MEDS ORDERED: lisINopril 5 MG (PRINIVIL) TABLET PO ONE (23:30)
[2022-10-31] MEDS ORDERED: ANTACID SUSP 30 ML UDC (MYLANTA) PO ONE (23:30)
[2022-10-31] MEDS ORDERED: ONDANSETRON 4 MG/2 ML (SDV) Z0FRAN IVP ONE (23:30)
[2022-11-01] MEDS ORDERED: ASPIRIN 81 MG CHEW (CHILDREN'S ASA) PO ONE (00:15)
[2022-11-01] MEDS ORDERED: NITROGLYCERIN 0.4 MG SL TABS BTL 25'S SL PRN (00:15)
[2022-11-01 03:02] VITALS: BP 143/70
--- NOTE | 2022-11-01 06:03 | Diagnostic Imaging Report ---
INDICATION: Chest pain Portable chest 12:24 AM Heart size and pulmonary vascularity are normal. Lungs are clear. There are no effusions or pneumothoraces. IMPRESSION: Negative chest Dictated by: Dictated on workstation # [id number]
--- NOTE | 2022-11-01 06:53 | Diagnostic Imaging Report ---
INDICATION: Chest pain Portable chest 11:00 PM Heart size and pulmonary vascularity are normal. Lungs are clear. There are no effusions or pneumothoraces. IMPRESSION: Negative chest Dictated by: Dictated on workstation # [id number]
== END 2022-11-01 03:04 | disposition home or self-care (01) ==
LOC: EDUNIT# 22:45 → ER 22:48
DX: K21.9 Gastro-esophageal reflux disease without esophagitis (principal); I10 Essential (primary) hypertension; Z28.310 Unvaccinated for COVID-19
CPT/HCPCS: 36415; 71045; 71046; 80053; 83735; 83874; 84484; 85025; 85610; 85730; 93005; 93041

== ENCOUNTER → 2023-01-17 | Outpatient (CLI) | payer MEDICARE, OTHER ==
[~2023-01-17] MED LIST changes: +MONT-47 PO; -MONT10TA21 PO
== END ==
LOC: CARD 14:29
PROVIDERS: ATTEND Physician Assistant
DX: R06.00 Dyspnea, unspecified (principal); I11.9 Hypertensive heart disease without heart failure
CPT/HCPCS: 93306